=== PATIENT | female | born 1995 | race Caucasian/White ===

== ENCOUNTER 2022-04-09 02:58 | Inpatient (IN) ==
[2022-04-09] MEDS ORDERED: OXYTOCIN 30 UNITS/500 ML BAG IV PRN ×2 (03:31→13:34)
[2022-04-09] MEDS ORDERED: LIDOCAINE 1% LOCAL 20 ML VIAL INFIL PRN (03:31)
--- NOTE | 2022-04-09 03:33 | History & Physical Report ---
Date of Service April 09, 2022 Assessment & Plan (1) Gestational diabetes: (2) with 39 completed weeks gestation: (3) Normal labor: Plan admit. Epidural on demand. arom/pit as needed. fetus category one. Anticipate . History of Present Illness Chief Complaint: contractions Primary Care Provider: Brenda Mann DO Patient is a 26yowf with iup at 39 0/7 that started with contractions at around 9:30 and worsened about 11:30. Started having some bloody show. Notes no lof. +fm. and Delivery Plans GDM w/16wk glucola *Begin monthly AC Us's @24wks Initial OB Labs (09/11/21) Blood Type & RH A positive Antibody Screen negative HCT/HGB 35.8/12.5 Platelets 209 Hep C IgG 13yrs+ Old non reactive Pap Test 04/01/21 negative Chlamydia not detected Gonorrhea not detected Rubella immune RPR non reactive Urine Culture/Screen less than 10,000 cfu/ml HBsAg non reactive HIV non reactive MCV 91.5 cf/sma-negative--mln cfdna-low risk--mln Declines msafp--mln GBS negative. Allergies Allergy/AdvReac Type Severity Reaction Status Date / Time doxycycline Allergy rash Verified 04/02/22 11:03 Home Medications Medication Instructions Recorded Confirmed Type prenat.vits,lorne,cgu-lwuv-pgaoh 1 tab PO DAILY 10/07/21 04/09/22 History acetone (urine) test (Ketone Urine #50 ea 11/12/21 04/02/22 Rx Test strips) blood sugar diagnostic (OneTouch #150 ea 11/12/21 04/02/22 Rx Verio test strips) blood-glucose meter (OneTouch #1 ea 11/12/21 04/02/22 Rx Verio Flex Meter) lancets 33 gauge (OneTouch Delica #150 ea 11/12/21 04/02/22 Rx Plus Lancet) Patient History Surgical History No history of previous surgery Family History Father Heart disease Grandmother (Maternal) Leukemia Social History Smoking Status: Never smoker Hx Alcohol Use: No Hx Substance Use: No Preferred Language: Macanese Communication Ability: Effective 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
[2022-04-09] MEDS: LACTATED RINGER'S 1,000 ML IV PRN ×2 (04:13→06:30)
[2022-04-09] MEDS ORDERED: ePHEDrine sulfate 50 MG/ML AMP ONE (04:24)
[2022-04-09] MEDS ORDERED: SODIUM CHLORIDE 0.9% INJ 10 ML VIAL ONE (04:24)
[2022-04-09] MEDS ORDERED: BUPIVACAINE 0.25% 30 ML VIAL ONE (04:24)
[2022-04-09] MEDS ORDERED: fentaNYL citrate 100 MCG/2 ML VIAL ONE (04:24)
[2022-04-09] MEDS ORDERED: fentaNYL 2MCG/ML ROPIVACAINE 1.25MG/ML 100 ML BAG EPI ONE (04:25)
[2022-04-09] MEDS ORDERED: LIDOCAINE 2%/EPINEPHRINE 1:200,000 20 ML SDV ONE (04:25)
[2022-04-09 04:28] LABS: Hematocrit (blood only) 33.3 % (34.1-44.9); Hemoglobin 11.3 g/dl (12.0-16.0); Mean Corpuscular Hgb Conc 33.9 g/dL (32.0-36.0); Mean Corpuscular Volume 94.3 fL (80.0-100.0); Platelet Count 112 K/uL (130-400); RDW Standard Deviation 47.3 fL (36.4-46.3); Red Blood Count 3.53 M/uL (3.93-5.22); White Blood Count 12.11 K/ul (4.8-10.8)
[2022-04-09] MEDS ORDERED: fentaNYL 2MCG/ML ROPIVACAINE 1.25MG/ML 100 ML BAG EPI PRN (04:38)
[2022-04-09] MEDS ORDERED: NALBUPHINE HCL INJ 10 MG/ML AMP IV PRN (04:38)
[2022-04-09] MEDS ORDERED: NALOXONE HCL 1 MG in SODIUM CHLORIDE 0.9% 1000ML 1,000 ML IV PRN (04:38)
[2022-04-09] MEDS ORDERED: ePHEDrine sulfate 50 MG/ML AMP IV PRN (04:38)
[2022-04-09] MEDS ORDERED: ONDANSETRON INJ 2 MG/ML 2 ML VIAL IV PRN (04:38)
[2022-04-09] MEDS ORDERED: NALOXONE HCL 0.4 MG/1 ML VIAL/CARP IV PRN (04:38)
[2022-04-09] MEDS ORDERED: diphenhydrAMINE 50 MG/ML VIAL IV PRN (04:38)
--- NOTE | 2022-04-09 04:39 | Anesthesiology Consultation ---
Date of Service April 09, 2022 Assessment & Plan (1) Encounter for pre-operative examination: Chart Review Chart Review: Patient NOT seen in Pre Admission Testing and Acceptable Risk for Labor Epidural Consults Requested none History Height/Weight Height: 5 ft 4 in Weight: 63.503 kg Allergies Allergy/AdvReac Type Severity Reaction Status Date / Time doxycycline Allergy rash Verified 04/02/22 11:03 Medications Home Medications Medication Instructions Recorded Confirmed Last Taken prenat.vits,lorne,gqw-pjll-wvbqp 1 tab PO DAILY 10/07/21 04/09/22 04/08/22 09:00 acetone (urine) test (Ketone Urine #50 ea 11/12/21 04/02/22 Unknown Test strips) blood sugar diagnostic (OneTouch #150 ea 11/12/21 04/02/22 Unknown Verio test strips) blood-glucose meter (OneTouch #1 ea 11/12/21 04/02/22 Unknown Verio Flex Meter) lancets 33 gauge (OneTouch Delica #150 ea 11/12/21 04/02/22 Unknown Plus Lancet) Active Medications Generic Name Dose Route Start Last Admin Trade Name Freq PRN Reason Stop Dose Admin Lactated Ringer's 1,000 mls @ 125 mls/hr 04/09/22 03:31 04/09/22 04:52 Lr IV 04/11/22 03:30 125 mls/hr .Q8H PRN Infusion L&D Protocol Protocol Past Medical History Medical History (Updated 04/09/22 @ 04:39 by Gurpreet George MD) Back pain affecting Gestational diabetes Exercise / Class Metabolic Activity II 4-5 Yardwork/Stairs/Walk up hill Past Family History Family History Father Heart disease Grandmother (Maternal) Leukemia Past Surgical History Surgical History No history of previous surgery Past Anesthesia History No Hx of Anesthesia Complications and No Family Hx of Anesthesia Complications Social History Smoking Status: Never smoker Hx Alcohol Use: No Hx Substance Use: No Physical Exam Vital Signs Last Vital Signs Temp 37.2 C 04/09/22 03:16 Pulse 88 04/09/22 05:02 Resp 18 04/09/22 03:16 BP 119/62 04/09/22 05:02 Pulse Ox 99 04/09/22 04:57 Testing Laboratory Results 04/09/22 03:55 04/09/22 03:47 POC Glucose 92
--- NOTE | 2022-04-09 06:04 | Labor Progress Brief Note ---
Date of Service April 09, 2022 Subjective Patient is comfortable with epidural Assessment & Plan (1) Normal labor: Plan continue current management. arom for clear fluid. fetus category one. anticipate . Admission and Anticipated Discharge Date Admission Date: April 09, 2022 Physical Exam Physical Exam: cx--8/100/-1 toco--q2-4min efm--140s with mod variability, accels ti 150s, early with some contractions. Results & Data ([facility]) Vital Signs (Past 12 Hours) Vital Signs Temp Pulse Resp BP Pulse Ox 04/09/22 05:57 101 H 99 04/09/22 05:55 83 127/76 04/09/22 05:52 77 99 04/09/22 05:47 90 99 04/09/22 05:42 82 99 04/09/22 05:40 84 128/73 04/09/22 05:37 81 98 04/09/22 05:32 94 H 98 04/09/22 05:27 89 98 04/09/22 05:24 95 H 131/79 04/09/22 05:22 91 H 97 04/09/22 05:19 90 129/71 04/09/22 05:17 88 97 04/09/22 05:14 95 H 119/61 04/09/22 05:12 91 H 129/59 L 98 04/09/22 05:10 86 18 126/59 L 04/09/22 05:08 90 118/59 L 04/09/22 05:07 90 97 04/09/22 04:59 18 04/09/22 04:59 18 04/09/22 05:06 91 H 117/60 04/09/22 05:04 98 H 119/60 04/09/22 05:02 97 04/09/22 05:02 94 H 04/09/22 05:02 88 119/62 04/09/22 05:00 96 H 120/75 04/09/22 04:57 103 H 99 04/09/22 04:52 103 H 99 04/09/22 04:47 98 H 98 04/09/22 04:42 85 96 04/09/22 04:37 92 H 95 04/09/22 04:32 92 H 95 04/09/22 04:27 90 141/84 H 98 04/09/22 03:13 83 134/80 04/09/22 03:16 37.2 C 18 Coding Level of Care Code None Diagnoses Normal labor O80; Z37.9
[2022-04-09] MEDS ORDERED: DIPHTHERIA/TETANUS/PERTUSSIS 0.5 ML SYR/VIAL IM ONE (13:34)
[2022-04-09] MEDS ORDERED: bisacodyL 10 MG SUPP PR PRN (13:34)
[2022-04-09] MEDS ORDERED: oxyCODONE/ACETAMINOPHEN 5mg/325mg TAB PO PRN (13:34)
[2022-04-09] MEDS ORDERED: HYDROCORTISONE ACETATE 25 MG SUPP PR PRN (13:34)
[2022-04-09] MEDS ORDERED: ACETAMINOPHEN 325 MG TAB PO PRN (13:34)
[2022-04-09] MEDS ORDERED: BENZOCAINE 20% AER SPR 82.5 GM CAN EXT PRN (13:34)
--- NOTE | 2022-04-09 14:22 | Delivery Summary ---
Vaginal Delivery Summary Date of Service April 09, 2022 Vaginal Delivery Summary and 1st Degree LAC Patient is a 26-year-old female who presented in labor. She received effective epidural analgesia. She progressed to fully dilated and w with the urge to push. She pushed effectively over intact perineum for delivery of a viable male infant in left occiput posterior presentation. There was a loose nuchal cord which was reduced after delivering the head. Rest the delivered easily and was placed on mother's abdomen for further attention and drying. The infant was not vigorous and was making an effort to cry but was taken to the baby bed for further drying and evaluation. So the cord was clamped and cut at approximately 30 seconds after delivery. Cord blood was obtained placenta was then expressed intact with a three-vessel cord. A first- degree vaginal laceration was repaired with 3-0 chromic in the usual fashion. A left labial superficial laceration was not bleeding and therefore not repaired. A first-degree laceration on the right labia also was not bleeding and therefore not repaired. Estimated blood loss was 200 cc. bleeding was controlled with fundal massage and dilute Pitocin. Mother and were doing well after delivery. [facility] [place] Delivery Charge Delivery Type Details: and 1st Degree LAC
--- NOTE | 2022-04-09 15:20 | Anesthesia Procedure Note ---
Date of Service April 09, 2022 Anesthesia Post Epidural Note Vital Signs Vital Signs: Temp Pulse Resp BP Pulse Ox O2 Del Method 36.6 C 102 H 18 128/59 L 98 04/09/22 15:15 04/09/22 15:10 04/09/22 15:15 04/09/22 15:10 04/09/22 13:57 04/09/22 15:15 Pain Intensity Bilateral Abdomen: Pain Intensity: 3 Notes Mental Status: alert / awake / arousable and participated in evaluation Nausea / Vomiting: adequately controlled Pain: adequately controlled Airway Patency, RR, SpO2: stable & adequate BP & HR: stable & adequate Hydration State: stable & adequate Neuraxial Anesthesia: was administered and sensory block is resolving Anesthetic Complications: no major complications apparent and Pt Satisfied with anesthetic care Epidural: Removed without complications and With tip intact
[2022-04-09] MEDS: DOCUSATE SODIUM 100 MG CAP PO SCH (21:40)
[2022-04-09] MEDS: IBUPROFEN 600 MG TAB PO PRN (21:50)
[2022-04-10] MEDS: IBUPROFEN 600 MG TAB PO PRN ×3 (04:20→16:19)
[2022-04-10 06:58] LABS: Hematocrit (blood only) 28.6 % (34.1-44.9); Hemoglobin 9.9 g/dl (12.0-16.0); Mean Corpuscular Hgb Conc 34.6 g/dL (32.0-36.0); Mean Corpuscular Volume 92.6 fL (80.0-100.0); Platelet Count 149 K/uL (130-400); RDW Coefficient of Variation 14.2 % (11.5-14.5); RDW Standard Deviation 46.6 fL (36.4-46.3); Red Blood Count 3.09 M/uL (3.93-5.22); White Blood Count 15.29 K/ul (4.8-10.8)
--- NOTE | 2022-04-10 07:28 | Obstetrical Progress Note ---
Date of Service April 10, 2022 Assessment & Plan (1) state: 26 yo PP1 from , doing well -Meeting all pp milestones -A+/rubella immune/ -f/u 6 weeks for appt, continue routine pp care Subjective Ambulation: ambulating normally Voiding: no voiding problems Passing Gas:: Yes Diet Tolerance:: regular diet Lochia:: Small Feeding Type:: breast feeding Pain well managed with medication Review of Systems Denies fevers, chills, n/v, SORIANO, CP, SOB Physical Exam Constitutional WD/WN, vitals as above no acute distress Respiratory normal respiratory effort, lungs clear to auscultation Cardiovascular RRR, no murmur, no edema Gastrointestinal (Abdomen) Percussion/Palpation: abdomen soft; abdomen nontender fundus firm at umbilicus and NT Musculoskeletal BLE symmetric, nonerythematous, nontender Results & Data ([facility]) Vital Signs (Past 12 Hours) Vital Signs Temp Pulse Resp BP Pulse Ox O2 Del Method 04/10/22 03:31 98.6 F 78 18 116/72 99 Room Air 04/09/22 23:23 99.0 F 95 H 18 117/73 97 Room Air 04/09/22 21:40 98.4 F 102 H 17 114/71 97 Room Air
[2022-04-10] MEDS: DOCUSATE SODIUM 100 MG CAP PO SCH ×2 (08:55→19:49)
[2022-04-10] MEDS: PRENATAL VITAMIN 1 TAB PO SCH (08:56)
[2022-04-10] MEDS ORDERED: bisacodyL 5 MG TABEC PO SCH (20:00)
[2022-04-11] MEDS: IBUPROFEN 600 MG TAB PO PRN ×2 (05:48→13:22)
--- NOTE | 2022-04-11 07:22 | Obstetrical Progress Note ---
Date of Service April 11, 2022 Assessment & Plan (1) state: satisfactory progress wishes to be discharged follow up in 6 weeks Subjective Ambulation: ambulating normally Voiding: no voiding problems Passing Gas:: Yes Diet Tolerance:: regular diet Lochia:: Small Feeding Type:: breast feeding Review of Systems All systems reviewed & are unremarkable except as noted in HPI & below Physical Exam Constitutional WD/WN, vitals as above Psychiatric A+Ox3, euthymic affect Genitourinary OB Exam Abdomen: + fundal height Fundus: + firm and + relation to umbilicus (1 below) Results & Data ([facility]) Vital Signs (Past 12 Hours) Vital Signs Temp Pulse Resp BP Pulse Ox O2 Del Method 04/10/22 23:21 98.4 F 67 18 106/70 97 Room Air 04/10/22 19:42 98.1 F 92 H 18 110/62 99 Room Air
[2022-04-11 07:45] LABS: Hematocrit (blood only) 29.2 % (34.1-44.9); Hemoglobin 9.8 g/dl (12.0-16.0)
[2022-04-11] MEDS: DOCUSATE SODIUM 100 MG CAP PO SCH (08:35)
[2022-04-11] MEDS: PRENATAL VITAMIN 1 TAB PO SCH (08:35)
== END 2022-04-11 17:15 | disposition home or self-care (01) | DRG 807 ==
LOC: OPB 02:58 → 4S1 02:59 → 4E2 16:24 → UNDODISIN 04-11 13:45
DX: Z3A.39 39 weeks gestation of pregnancy; Z37.0 Single live birth; O69.81X0 Labor and delivery complicated by cord around neck, without compression, not applicable or unspecified; O24.419 Gestational diabetes mellitus in pregnancy, unspecified control

== ENCOUNTER 2024-02-03 00:58 | Inpatient (IN) ==
[2024-02-03] MEDS ORDERED: ACETAMINOPHEN 325 MG TAB PO PRN ×2 (01:09→03:32)
[2024-02-03] MEDS ORDERED: LIDOCAINE 1% LOCAL 20 ML VIAL INFIL PRN (01:09)
[2024-02-03] MEDS ORDERED: LACTATED RINGER'S 1,000 ML IV PRN (01:09)
[2024-02-03] MEDS ORDERED: CALCIUM CARBONATE 500 MG CHEWABLE TAB PO PRN (01:09)
[2024-02-03] MEDS: OXYTOCIN 30 UNITS/NSS 30 UNITS/500 ML BAG IV PRN (02:15)
[2024-02-03] MEDS: IBUPROFEN 600 MG TAB PO ONE (03:15)
[2024-02-03] MEDS ORDERED: oxyCODONE/ACETAMINOPHEN 5mg/325mg TAB PO PRN (03:32)
[2024-02-03] MEDS ORDERED: IBUPROFEN 600 MG TAB PO PRN (03:32)
[2024-02-03] MEDS ORDERED: HYDROCORTISONE ACETATE 25 MG SUPP PR PRN (03:32)
[2024-02-03] MEDS ORDERED: OXYTOCIN 30 UNITS/NSS 30 UNITS/500 ML BAG IV PRN (03:32)
[2024-02-03 03:55] LABS: Hematocrit (blood only) 35.2 % (37.0-47.0); Hemoglobin 11.7 g/dl (12.0-16.0); Mean Corpuscular Hemoglobin 31.7 pg (25.0-34.0); Mean Corpuscular Hgb Conc 33.2 g/dL (32.0-36.0); Mean Corpuscular Volume 95.4 fL (80.0-100.0); Platelet Count 124 K/uL (130-400); RDW Coefficient of Variation 13.7 % (11.5-14.5); RDW Standard Deviation 47.9 fL (36.4-46.3); Red Blood Count 3.69 M/uL (4.20-5.40); White Blood Count 14.82 K/ul (4.8-10.8)
--- NOTE | 2024-02-03 04:10 | History & Physical Report ---
Date of Service February 03, 2024 Assessment & Plan (1) Encounter for supervision of normal in multigravida: Plan: Intrauterine at term in active labor who presents with complete dilation but membranes intact. After IV access of an obtained, we will AROM and begin the pushing stage. Anticipate vaginal . Admission and Anticipated Discharge Date Admission Date: February 03, 2024 History of Present Illness Primary Care Provider: Brenda Mann DO Patient is a 28-year-old 2 para 1-0-0-1 female EDC of 02/10/2024 who presented in active labor. Membranes were intact and contractions were approximately 3 to 4 minutes apart. was complicated by gestational diabetes diet-controlled. GBS is negative. Allergies Allergy/AdvReac Type Severity Reaction Status Date / Time doxycycline Allergy rash Verified 01/27/24 09:38 Home Medications Medication Instructions Recorded Confirmed Type prenat.vits,lorne,pgt-eorc-bwrho 1 tab PO DAILY 10/07/21 02/03/24 History Saccharomyces boulardii [Daily PO 05/21/22 01/27/24 History Probiotic (S. boulardii)] magnesium 1 tab PO DAILY 05/21/22 02/03/24 History acetone (urine) test (Ketone Urine #50 ea 09/13/23 01/27/24 Rx Test strips) blood sugar diagnostic (OneTouch #150 ea 09/13/23 01/27/24 Rx Verio test strips) lancets 33 gauge (OneTouch Delica #150 ea 09/13/23 01/27/24 Rx Plus Lancet) Patient History Medical History Varicella vaccination Surgical History S/P wisdom tooth extraction Family History Father Heart disease Grandmother (Maternal) Leukemia Aunt Breast cancer Ovarian cancer Denies family history of Colorectal cancer Social History Smoking Status: Never smoker Do You Dip or Chew Tobacco: No; Hx Alcohol Use: No Hx Substance Use: No Preferred Language: Kinyarwanda Communication Ability: Effective Foreclosure Specialist Required: No Beliefs That Will Affect Care: None marital status: marital status details: Narayan Huagn(34) [phone] Current Living Situation: Spouse and Family Current Living Situation Comment: lives with spouse, child, 1 dog. 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 Feels Safe at Home: Yes Safety Concerns: Feels Safe At This Time Diet: regular Do you think of yourself as: straight/heterosexual Gender Identity: Female Assistive Devices: None Review of Systems All systems reviewed & are unremarkable except as noted in HPI & below Physical Exam Constitutional: WD/WN, vitals as above Psychiatric: A+Ox3, euthymic affect Genitourinary: OB Exam Abdomen: + vertex and + regular contractions (q 3-4 minutes) Manual OB Exam: + cervical dilation 10 cm, + cervical effacement 100% and + station 0 OB Exam Monitor Tracing: + external FHT monitor used, + external uterine monitor used, + category I and + normal FHT variability Results & Data Vital Signs (Past 12 Hours) Vital Signs Temp Pulse Resp BP 02/03/24 04:03 75 117/71 02/03/24 03:48 80 124/72 02/03/24 03:33 75 124/70 02/03/24 03:20 82 119/70 02/03/24 03:03 93 H 117/79 02/03/24 02:48 84 117/76 02/03/24 02:33 88 112/80 02/03/24 02:18 91 H 115/81 02/03/24 01:09 98.8 F 18 Code Status & VTE Plan VTE Prophylaxis Plan VTE Prophylaxis will be ordered: No Coding Level of Care Code 96033 INT INP/OBS CARE 40MIN Diagnoses Encounter for supervision of normal in multigravida Z34.80
--- NOTE | 2024-02-03 04:13 | Delivery Summary ---
Vaginal Delivery Summary Date of Service February 03, 2024 Vaginal Delivery Summary [facility] Patient presented to labor and delivery fully dilated with membranes intact at 39 weeks gestation. After IV access was obtained, membranes ruptured for clear fluid. Patient then began pushing effectively and over intact perineum delivered a viable male . After the head was delivered the rest of the delivered with ease. He was placed on the mother's abdomen for further attention and drying. He was vigorous crying moving all 4 limbs. After 3 minutes per patient's request, the cord was then clamped and cut. After cord blood was obtained, the placenta was expressed intact with a three-vessel cord. bleeding was controlled with fundal massage and dilute IV Pitocin. Perineum was noted to be intact. QBL was 250 mL. mother and were doing well after delivery. [facility] [place]aginal Delivery Charge Delivery Type Details: [facility]
[2024-02-03] MEDS: BENZOCAINE 20% SPRY 85 APPLN/85 GM CAN EXT PRN (04:26)
[2024-02-03] MEDS: DIPHTHER/TETAN/PERTUS Vaccine (Tdap, Adol/Adult) 0.5mL IM ONE (05:03)
[2024-02-03] MEDS: IBUPROFEN 600 MG TAB PO PRN (07:42)
[2024-02-03] MEDS: DOCUSATE SODIUM 100 MG CAP PO SCH (07:42)
[2024-02-03] MEDS: PRENATAL VITAMIN 1 TAB PO SCH (07:42)
--- NOTE | 2024-02-04 05:41 | Obstetrical Progress Note ---
Date of Service February 04, 2024 Assessment & Plan (1) Encounter for care and examination after delivery: Plan Pt is 28 yo post- day 1 s/p at 40w1d. complicated by GDM Encourage ambulation and breast feeding Tylenol 650mg and Ibuprofen 600mg as needed for pain Monitor vitals Upon discharge, pt to follow up with Dr. Clarke in 6 weeks Admission and Anticipated Discharge Date Admission Date: February 03, 2024 Supervising Physician Co-Signing Physician Notes Resident Physician Supervision Note: I interviewed and examined the patient. Discussed with Dr. Rose and agree with findings and plan as documented in the note. Any exceptions or clarifications are listed here: Doing well. Plan d/c. Instructions given. Documented By: Justine Raza MD, FACOG Subjective Pt is 28 yo post- day 1 s/p at 40w1d. complicated by GDM Ambulation:In and out of room Voiding:voiding normally Passing gas: yes BM: no Diet tolerance:regular diet Lochia:bloody, no clots Feeding type: breast Current pain level: -0-3 /10 improved with ibuprofen Resting comfortably this morning in NAD. Denies SORIANO, CP, SOB, N/V/D, LE pain/swelling. Review of Systems Review of Systems: As per HPI Physical Exam Constitutional: WD/WN, vitals as above Respiratory: normal respiratory effort, lungs clear to auscultation Cardiovascular: RRR, no murmur, no edema Gastrointestinal (Abdomen): normal bowel sounds, soft, nontender, no hepatosplenomegaly Uterine fundus firm and at level of umbilicus Neurologic: PERRL, EOMI, accommodation nl, no face palsy, no dysarthria Moving all 4 extremities on command Psychiatric: A+Ox3, euthymic affect Results & Data Vital Signs (Past 12 Hours) Vital Signs Temp Pulse Resp BP Pulse Ox O2 Del Method 02/04/24 04:30 36.4 C L 84 18 115/70 99 Room Air 02/03/24 21:00 36.7 C 90 18 112/69 97 Room Air Resident Activity Tracking Resident Involvement: Resident Care Provided Care Provided: Adult Hospital Medicine
[2024-02-04 07:22] LABS: Hematocrit (blood only) 32.5 % (37.0-47.0); Hemoglobin 10.8 g/dl (12.0-16.0); Mean Corpuscular Hgb Conc 33.2 g/dL (32.0-36.0); Mean Corpuscular Volume 96.2 fL (80.0-100.0); Mean Platelet Volume 11.6 fL (9.4-12.4); Platelet Count 123 K/uL (130-400); RDW Coefficient of Variation 13.9 % (11.5-14.5); RDW Standard Deviation 48.2 fL (36.4-46.3); Red Blood Count 3.38 M/uL (4.20-5.40); White Blood Count 10.39 K/ul (4.8-10.8)
[2024-02-04 09:07] VITALS: BP 105/70; PULSE 76; RESP 20; TEMP 97.9; O2SAT 98
[2024-02-04] MEDS ORDERED: bisacodyL 5 MG TABEC PO SCH (20:00)
[2024-02-05] MEDS ORDERED: bisacodyL 10 MG SUPP PR PRN (03:32)
== END 2024-02-04 14:15 | disposition home or self-care (01) | DRG 807 ==
LOC: OPB 00:58 → 4S1 01:04 → 4E2 05:04